=== PATIENT | female | born 1985 | race Hispanic/Latino ===

== ENCOUNTER → 2019-01-11 08:40 | Outpatient (CLI) | payer OTHER, SELFPAY ==
[2019-01-11 09:25] LABS: Add Manual Diff / Slide Review NO; Basophils Absolute Auto 0 /uL (0-100); Basophils Percent Auto 0.4 % (0-2); Eosinophils Absolute Auto 100 /uL (0-450); Eosinophils Percent Auto 1.1 % (2-4); Hematocrit 37.8 % (36-46); Lymphocytes Absolute Auto 2300 /uL (1100-4500); Lymphocytes Percent Auto 24.6 % (25-40); Mean Corpuscular HGB Conc 34.3 % (30-36); Mean Corpuscular Hemoglobin 29.5 PG (26-34); Monocytes Absolute Auto 400 /uL (0-900); Monocytes Percent Auto 4.4 % (3-14); Neutrophils Absolute Auto 6600 /uL (1500-7000); Neutrophils Percent Auto 69.5 % (50-75); Platelet Count 224 X10^3/uL (150-400); White Blood Cell Count 9.4 X10^3/uL (4.5-11.0)
[2019-01-11 09:27] LABS: Appearance Urine UA CLEAR; Bilirubin Urine UA NEGATIVE (NEGATIVE); Color Urine UA YELLOW; Glucose Urine UA NEGATIVE (Negative); Ketones Urine UA NEGATIVE (NEGATIVE); Leukocyte Esterase Urine UA NEGATIVE (NEGATIVE); Nitrite Urine UA NEGATIVE (Negative); Occult Blood Urine UA TRACE-INTACT (Negative); Protein Urine UA NEGATIVE (Negative); Specific Gravity Urine UA <=1.005 (1.000-1.035); Urobilinogen Urine UA 0.2 E.U./dL (0.2)
[2019-01-11 09:35] LABS: Hemoglobin A1C% w Est Avg Glu 4.8 % (4.0-6.0)
[2019-01-11 09:36] LABS: Glucose 77 mg/dL (70-100)
[2019-01-11 17:00] LABS: Hepatitis B Surface Antigen NEGATIVE s/c (NEGATIVE)
[2019-01-11 17:17] LABS: HIV 1 & 2 Ab/Ag 4th Gen Combo NEGATIVE (NEGATIVE); Hep C Virus Ab w/Reflex Quant NEGATIVE s/c (NEGATIVE)
[2019-01-13 15:54] LABS: RPR Screen Nonreactive (Nonreactive)
== END ==
DX: Z34.81 Encounter for supervision of other normal pregnancy, first trimester (principal)
CPT/HCPCS: 36415; 80055; 81003; 82947; 83036; 86787; 86803; 86850; 86900; 86901; 87086; 87389

== ENCOUNTER → 2019-02-15 11:24 | Outpatient (CLI) | payer OTHER, SELFPAY ==
[2019-02-24 11:39] LABS: Sequential Screen 1st Trimeste FINAL PENDING
== END ==
DX: Z34.81 Encounter for supervision of other normal pregnancy, first trimester (principal)
CPT/HCPCS: 36415; 84163; 84702

== ENCOUNTER → 2019-03-24 08:00 | Outpatient (CLI) | payer OTHER, SELFPAY ==
[2019-03-26 13:08] LABS: Sequential Screen 2nd Trimeste SCREEN NEGATIVE
== END ==
DX: Z34.92 Encounter for supervision of normal pregnancy, unspecified, second trimester (principal); Z3A.15 15 weeks gestation of pregnancy
CPT/HCPCS: 36415; 82105; 82677; 84163; 84702; 86336

== ENCOUNTER → 2019-07-26 09:34 | Outpatient (CLI) | payer OTHER, SELFPAY ==
[2019-07-27 12:01] LABS: Strep Grp B PCR NEG for Grp B Strep
== END ==
PROVIDERS: Visit Provider Obstetrics & Gynecology
DX: Z34.83 Encounter for supervision of other normal pregnancy, third trimester (principal); Z3A.36 36 weeks gestation of pregnancy
CPT/HCPCS: 87653

== ENCOUNTER 2019-08-09 10:47 | Outpatient (CLI) | payer OTHER, SELFPAY | END 2019-08-09 11:47 | disposition home or self-care (01) | LOC: LABOR 11:36 → OB 08-10 15:18 | PROVIDERS: Referring Provider Obstetrics & Gynecology; Visit Provider Obstetrics & Gynecology | DX: O36.8130 Decreased fetal movements, third trimester, not applicable or unspecified (principal); Z3A.38 38 weeks gestation of pregnancy | CPT/HCPCS: 59025; G0378; G0379 ==

== ENCOUNTER → 2019-08-14 09:28 | Outpatient (CLI) | payer OTHER, SELFPAY ==
[2019-08-15 01:50] LABS: COVID19 Sendout Not Detected (Not Detect)
== END ==
PROVIDERS: Visit Provider Physician Assistant
DX: Z01.812 Encounter for preprocedural laboratory examination (principal)
CPT/HCPCS: 87635

== ENCOUNTER 2019-08-15 18:36 | Inpatient (IN) | payer OTHER, SELFPAY ==
--- NOTE | 2019-08-15 20:02 | PM.OBHP.1 ---
OB HPI Date/Time Date of admission: 08/15/19 Date Patient Seen: 08/15/19 Time Patient Seen: 19:45 History of Present Condition Chief complaint: : 3 Para: 2 Narrative: Laverne Magana is a 33 year old female with JORGE 08/21/2019 by LMP and consistent with a 7 week ultrasound, being admitted for induction of labor at 39 weeks due to long distance from the hospital. She lives in [place]. Her has been uncomplicated. Indications Indication for induction OB: maternal distance History of Present care: good care Dating criteria: LMP confirmed by 1st trimester US Obstetrical complications: none Medical complications: none Preadmission Labs Blood type: O (+) positive -: Antibody screen: negative, GBS status: negative, HBsAG: negative, HIV: negative and RPR/VDLR: negative -: Chlamydia screen: not detected and Gonorrhea screen: not detected -: Rubella: immune and Varicella: immune Sequential screen: normal 1 hr GTT: 120 Evaluation Evaluation Baseline heart rate: 135 Variability: Moderate (11-25) monitor accelerations: Present monitor decelerations: Absent Category of Tracing: I Cervical dilation (cm): 0 Cervical effacement (%): 0 station: -4 Comments: [place] shows an occasional contraction. [facility] Medical History (Updated 08/16/19 @ 00:21 by Naheed Zhang MD) Gestational diabetes (Acute) Painful menstrual periods (Chronic) Surgical History (Updated 02/10/19 @ 20:47 by Yesi Lawton) Anesthesia (Resolved) History of appendectomy (Acute ~02/2003) Family History (Updated 02/10/19 @ 20:48 by Yesi Lawton) Mother Hypertension TIA (transient ischemic attack) Diabetes mellitus Hyperlipidemia Brother Kidney malignancy Lung cancer Social History marital status: Smoking Status: Never smoker Meds Home Medications and Allergies Home Medications Medication Instructions Recorded Confirmed Type prenat.vits,raj,uzr-yopp-pknze 1 tab PO DAILY 02/08/19 08/14/19 History omeprazole 20 mg capsule,delayed 20 mg PO DAILY #90 cap 05/27/19 08/14/19 Rx release Allergies Allergy/AdvReac Type Severity Reaction Status Date / Time No Known Drug Allergies Allergy Verified 08/14/19 09:56 Review of Systems Review of Systems Narrative: Not feeling any contractions. Denies leakage of fluid or vaginal bleeding. Feels good movement. Denies headache. Exam Vital Signs (past 8 hours): Afebrile. BP 144/81, 130/74. Pulse 64 Narrative Exam Narrative: General: Well-appearing female in no acute distress Abdomen gravid, nontender Extremities: Trace pedal edema Cervix fingertip/long/high. Vertex Objective Labs Result Diagrams: 08/15/19 20:15 Assessment and Plan Assessment and Plan Assessment and Plan narrative: 39 week , long distance from hospital. GBS negative Plan: CBC, Type and screen. [place] IV. Cytotec ordered for cervical ripening for induction. If no labor overnight, will start Pitocin in the morning.
[2019-08-15 20:38] LABS: Add Manual Diff / Slide Review NO; Basophils Absolute Auto 100 /uL (0-100); Basophils Percent Auto 0.7 % (0-2); Eosinophils Absolute Auto 200 /uL (0-450); Eosinophils Percent Auto 1.8 % (2-4); Hematocrit 32.2 % (36-46); Hemoglobin 10.9 g/dL (12.0-16.0); Lymphocytes Absolute Auto 2600 /uL (1100-4500); Lymphocytes Percent Auto 26.5 % (25-40); Mean Corpuscular HGB Conc 33.8 % (30-36); Mean Corpuscular Hemoglobin 28.1 PG (26-34); Monocytes Absolute Auto 600 /uL (0-900); Monocytes Percent Auto 6.1 % (3-14); Neutrophils Absolute Auto 6200 /uL (1500-7000); Neutrophils Percent Auto 64.9 % (50-75); Platelet Count 244 X10^3/uL (150-400); Red Blood Cell Count 3.87 X10^6/uL (4.0-5.2); Red Cell Distribution Width 12.9 % (11.6-14.8); White Blood Cell Count 9.6 X10^3/uL (4.5-11.0)
[2019-08-15] MEDS: miSOPROStoL 25 MCG TABLET 50 MCG PO (20:41)
[2019-08-15 23:19] VITALS: BP 144/81
[2019-08-16] MEDS: miSOPROStoL 25 MCG TABLET 50 MCG PO (00:52)
[2019-08-16] MEDS: LACTATED RINGERS 1,000 ML 1000 ML IV (01:10)
[2019-08-16] MEDS: TERBUTALINE 1 MG/ML VIAL 0.25 MG SUBCUT (01:45)
[2019-08-16] MEDS: LACTATED RINGERS 1,000 ML 100 ML IV (02:20)
--- NOTE | 2019-08-16 02:35 | PM.OBPNLAB ---
Date/Time Date Patient Seen: 08/16/19 Time Patient Seen: 01:05 Pain Control Pain control: tolerating well Comments: Contractions becoming uncomfortable Pelvic Exam Dilation (cm): 2 Effacement (%): 80 station: -4 Contractions Contractions on admission: regular Monitor mode: External Contraction frequency (min): 2 Contraction pattern: Regular Status status: Category ll (now improved to Category 1) Heart Rate Baseline: 145 Monitor Accelerations: Present Monitor Decelerations: Episodic Monitor Variability: Moderate Comments: FHR had to moderate variable deceleration and 15 minutes after her 1st oral misoprostol. These resolved with position change and she had no further decelerations for 90 minutes, with category 1 EFM. She was off the monitor subsequently for a while and placed back on prior to her next misoprostol dose. Review of EFM, prior to the misoprostol dose, baseline FHR 140 with decrease, minimal variability. Subsequently had some subtle late decelerations. [place] did not clearly show contraction pattern, appeared contractions were inverted on the monitor. 10 minutes after she was given her 2nd dose of misoprostol, when she was placed on her right lateral side, contractions were noted to be occurring every 1-1 1/2 minutes. I ordered an IV fluid bolus. She subsequently got up to the bathroom and upon returning from the bathroom FHR was recovering from a deceleration 90-1 100s. FHR after this deceleration had minimal variability. Contractions were still occurring every 1-1 1/2 minutes. I ordered terbutaline 0.25 mcg IM to help decrease contraction frequency, to not have the uterine hyper stomach current while the baby was recovering from the FHR deceleration. Contractions began to space and EFM variability began to return to moderate just before the terbutaline was given and after the terbutaline, contractions further spaced to q 5+ minutes for short time, subsequently now every 2-1/2 minutes. Since the terbutaline EFM has continued as category 1 with no further decelerations, variability has now remained moderate variability and there are spontaneous accelerations. Assessment and Plan Assessment: active labor and induction ongoing Plan: continuous present management Comments: Patient declines anything for pain control, desires natural childbirth. Continue IV fluids, and close observation of FHR.
--- NOTE | 2019-08-16 03:59 | PM.OBPNLAB ---
Date/Time Date Patient Seen: 08/16/19 Time Patient Seen: 03:50 Pain Control Pain control: tolerating well Pelvic Exam Dilation (cm): 4 Effacement (%): 80 station: -3 Amniotic membrane status: Intact Contractions Contractions on admission: regular Monitor mode: External Contraction frequency (min): 2 Contraction pattern: Regular Status status: Category l (now improved to Category 1) Heart Rate Baseline: 150 Monitor Accelerations: Present Monitor Decelerations: Absent Monitor Variability: Moderate Assessment and Plan Assessment: active labor Plan: continuous present management (expectant care)
[2019-08-16] MEDS: IBUPROFEN 600 MG TABLET PO ×2 (12:44→21:21)
[2019-08-16] MEDS: DOCUSATE 100 MG CAPSULE PO ×2 (12:44→21:22)
[2019-08-16] MEDS: LANOLIN OINT 7 GM 1 APPLIC TOP (14:23)
[2019-08-16] MEDS: ACETAMINOPHEN 325 MG TABLET 650 MG PO (17:23)
[2019-08-16] MEDS: DERMOPLAST SPRAY 20% 60 ML 1 SPRAY TOP (17:23)
--- NOTE | 2019-08-16 19:15 | PM.OBPRVD ---
 Events: Labor Induction (For distance from hospital, lives on [place], Friday) Labor & Delivery Delivery date: 08/16/19 Cervical ripening method: per misoprostal protocol Induction method: other (Developed labor with the misoprostol) Delivery monitor: external FHT Route of delivery: Episiotomy description: None L&D Laceration Description: Perineal - 2nd Degree Delivery repair: chromic Estimated blood loss (mL): 300 Anesthesia type: Local (for repair) Complications: none Narrative: She progressed to completely dilated. Vertex was 1+ station with bulging membranes. Membranes were artificially ruptured and vertex quickly descended. She began pushing, only pushed a few times and had a spontaneous vaginal delivery over an intact perineum from the ADRI position. No nuchal cord was present. Anterior followed by posterior shoulder were delivered with ease with the patient pushing, followed by the remainder of the body. A baby girl was delivered at 0752. The baby cried spontaneously, appeared vigorous and was placed on the maternal abdomen. After 1 minute, cord was clamped and cut. Placenta delivered spontaneously approximately 10 minutes later. She had normal bleeding after delivery of the placenta. She was given routine Pitocin IV. On inspection she had a very small second-degree perineal laceration which was repaired in the usual fashion with #3 chromic. She did well and was left to recover in good condition. [place] Baby 1: gender: Female Presentation: vertex position: Right Occiput Anterior Placenta delivery description: Spontaneous cord vessel description: 3 Vessels score (1 min): 8 score (5 min): 9 Narrative: Infant weight was 6 lb 14 oz Plan for aftercare: Left to recover feeling well, in good condition
[2019-08-17 07:00] LABS: Hematocrit 29.7 % (36-46); Hemoglobin 10.1 g/dL (12.0-16.0)
[2019-08-17 11:24] VITALS: BP 127/85; PULSE 78; RESP 16; TEMP 37.2
--- NOTE | 2019-08-17 12:43 | PM.DS.1 ---
History of Present Illness History of Present Illness Date Patient Seen: 08/17/19 Time Patient Seen: 12:15 Chief complaint: induction of labor Narrative: 33 year old female admitted for induction of labor at 39 weeks due to long distance from the hospital. She lives in [place]. Her had been uncomplicated. Discharge Providers Provider Date of admission: 08/15/19 18:36 Discharge Date: 08/17/19 Primary care physician: Alexys Rojas MD Consults: 08/16/19 06:15 Consult to Anesthesiology Urgent Comment: Consulting Provider: Anesthesiologist Reason for consultation: labor analgesia Has provider been notified: No 08/17/19 08:30 Consult to [employer] Consultant Routine Comment: Discharge provider: Naheed Zhang MD Summary Hospital Course Discharge Diagnosis: Term , delivered Status post spontaneous vaginal delivery Hospital Course: Laverne received misoprostol for cervical ripening. She progressed in to Labor after receiving the misoprostol. She progressed to completely dilated. Membranes were ruptured at this time and the head quickly descended. She had a short 2nd stage of labor, pushing quickly and had a spontaneous vaginal delivery. She delivered a 6 lb 14 oz female infant with Apgars of 8 and 9. She had a small second-degree perineal laceration which was repaired. She has had a normal course. She is breast-feeding without problems. The baby is doing well and she desires discharge home today on day 1. She is being discharged in good condition. Status at Discharge Cognitive/behavioral status at discharge: oriented Functional status at discharge: independent ambulation Overall status at discharge: patient is back to baseline Time Spent with Patient Time spent: Less than 30 minutes Exam Vital Signs (past 8 hours): - 08/17/19 11:24 Temperature 99.0 F Pulse Rate 78 Respiratory Rate 16 Blood Pressure 127/85 Narrative Exam Narrative: General: Well-appearing female Abdomen: Soft, nontender, nondistended. Fundus: U=0 , firm, nontender Extremities: Trace pedal edema Objective Labs Result Diagrams: 08/17/19 06:36 Labs: Laboratory Results - last 24 hr 08/17/19 06:36 Hgb 10.1 L Hct 29.7 L Discharge Plan Discharge Plan Patient Disposition: Home Discharge comment: Follow-up appointment with me in 6 weeks Discharge orders & Medications Prescriptions: New acetaminophen 325 mg Tablet 650 mg PO Q6HR PRN (Reason: Fever/Mild Pain (1-3)) Qty: 0 RF: 0 ibuprofen 600 mg Tablet 600 mg PO Q6HR PRN (Reason: Pain, Mild (1-3)) Qty: 0 RF: 0 Chl-X-Muvoss Cream 1 applic topical PRN PRN (Reason: Tenderness) Qty: 0 RF: 0 Continued prenat.vits,raj,pgm-[id number] Tablet 1 tab PO DAILY RF: 0 omeprazole 20 mg capsule,delayed release(DR/EC) 20 mg PO DAILY Qty: 90 RF: 3 Follow up/Referrals: Naheed Zhang MD [Physician] - Alexys Rojas MD [Primary Care Provider] - (Appointment with on Friday, September at 2PM) Discharge Health Status Multidrug resistant organism: No MDRO Diet/Activity/Treatments Diet: Regular Activity: May gradually resume normal activity. No strenuous exercise or heavy lifting. Nothing in the vagina for 6 weeks, including no tampons and no intercourse Cold/Heat Therapy: May use cool compresses to area of external vaginal stitches Skin/Wound/Dressing Care Report to your healthcare provider any signs of infection, such as:: chills, fever and increased pain Discharge Data Primary Care Provider: Alexys Rojas
== END 2019-08-17 13:35 | disposition home or self-care (01) | DRG 807 ==
PROVIDERS: Admitting Provider Obstetrics & Gynecology; Referring Provider Obstetrics & Gynecology; Visit Provider Obstetrics & Gynecology
DX: O70.1 Second degree perineal laceration during delivery (principal); Z37.0 Single live birth; Z3A.39 39 weeks gestation of pregnancy; Z01.812 Encounter for preprocedural laboratory examination
CPT/HCPCS: 36415; 59050; 59200; 59400; 59409; 85014; 85018; 85025; 86850; 86900; 86901; 87635; G0379